=== PATIENT | male | born 1970 | race Caucasian/White ===

== ENCOUNTER → 2018-01-10 | Outpatient (CLI) | payer BC ==
[2018-01-10 09:47] LABS: HCT 45.4 % (39.0-53.0); HGB 15.4 gm/dL (13.0-17.5); MCH 30.3 pg (25.0-35.0); MCHC 33.9 g/dL (31.0-37.0); MCV 89.2 fL (80.0-100.0); Platelet Count 212 k/uL (150-450); RBC 5.09 m/uL (4.30-5.90); RDW 12.9 % (11.5-15.5); WBC 9.3 k/uL (3.8-10.6)
[2018-01-10 10:00] LABS: Potassium 4.4 mmol/L (3.5-5.1)
== END ==
LOC: LABPAT 08:18
PROVIDERS: ATTEND Internal Medicine Interventional Cardiology
DX: Z01.812 Encounter for preprocedural laboratory examination (principal); I10 Essential (primary) hypertension; E78.1 Pure hyperglyceridemia; R06.02 Shortness of breath; R07.9 Chest pain, unspecified
CPT/HCPCS: 36415; 80051; 82565; 84520; 85027

== ENCOUNTER → 2018-01-24 | Day surgery (SDC) | payer BC ==
[2018-01-23 08:18] VITALS: BMI 37.8
[~2018-01-24] MED LIST: ALPRAZolam 0.25 MG TAB PO PRN; ALPRAZolam 0.5 MG TAB PO PRN; ASPIRIN 325 MG TAB PO STA; ATORVASTATIN 80 MG TAB PO STA; HEPARIN SODIUM 1,000 UN/ML (10ML VL) IV ONE; IOPAMIDOL-370 125ML BTL INJ ONE; LIDOCAINE 1% INJ 10MG/ML (20 ML MDV) SQ ONE; MIDAZOLAM 2 MG/2 ML VIAL IVP ONE; NITROGLYCERIN SL TABS 0.4 MG TAB SUBLINGUAL PRN; RX INFO: IV CONTRAST WAS GIVEN 1 EACH MISC MISCELLANE PRN; SODIUM CHLORIDE 0.9% 1,000 ML IV SCH; SODIUM CHLORIDE 0.9% 1,000 ML in EMPTY BAG 1 BAG IV ONE; VERAPAMIL 2.5 MG/ML 4 ML VIAL INTRAARTER ONE; fentaNYL (PF) 50 MCG/ML 2 ML AMP IVP ONE
[2018-01-24 08:38] VITALS: TEMP 98.2
--- NOTE | 2018-01-24 10:05 | CC ---
CARDIAC CATHETERIZATION REPORT DATE OF SERVICE: January 24, 2018 PERFORMING PHYSICIAN: Myron Maya MD, astronomy professor. PROCEDURE PERFORMED: 1. Selective right and left coronary angiogram. 2. Left heart catheterization. INDICATION: This is a pleasant 47-year-old gentleman with hypertension and dyslipidemia and sleep apnea, who continues to have exertional chest discomfort quite concerning for angina in spite of maximized medical treatment. Because of that, a heart catheterization was advised. APPROACH: Right radial artery. COMPLICATION: None. LEVEL OF SEDATION: Moderate with sedation length of 12 minutes. PROCEDURE DESCRIPTION: After obtaining an informed consent, the patient was brought to the cardiac laborer laboratory. The right radial artery was cannulated using micropuncture technique and a micropuncture wire passed easily then I placed a 6-Mohawk sheath in the right radial artery. After that, I did selective right and left coronary angiogram using JR4 and JL3.5 catheters. I did left heart catheterization using the JR4 catheter which flipped into the LV then I did pullback across the aortic valve. I gave the patient 10 mg of heparin at the beginning of the procedure and 2 mg of verapamil as well. The procedure was completed without any complication. SELECTIVE CORONARY ANGIOGRAM: 1. The right coronary artery is a large caliber vessel and is a dominant vessel. The right coronary artery is angiographically normal. It distally bifurcates into PDA and PLV branches both are angiographically normal. 2. The left main is normal. It bifurcates into left circumflex, ramus intermedius, and left anterior descending artery. 3. The left circumflex is a large caliber vessel. It is a nondominant vessel. It is angiographically normal. 4. The ramus intermedius is a large caliber vessel as well and appeared to be angiographically normal. 5. LAD: The proximal LAD appeared to have mild disease only. The mid LAD and distal LAD are angiographically normal. The LAD in the midportion gives rise into 2 diagonal branches both are angiographically normal. HEMODYNAMICS: The left ventricular end-diastolic pressure was 15 mmHg and no gradient was identified across the aortic valve. CONCLUSION: 1. Normal coronary angiogram. 2. Normal left ventricular end-diastolic pressure. POSTPROCEDURE MANAGEMENT: Medical treatment and follow up with . MMODL / IJN: [id number] /
--- NOTE | 2018-01-24 10:05 | LTR ---
January 24, 2018 Re: Fernando Hightower Dear Dr. Jack: Mr. Fernando Hightower underwent today a heart catheterization and that revealed normal coronaries. I want to thank you for allowing me to participate in his care and please do not hesitate to call if you have any questions or concerns. Sincerely, MD JEIMY Ureña / NADEEN: [id number] /
[2018-01-24 15:02] VITALS: PULSE 74; RESP 16
[2018-01-24 15:17] VITALS: BP 129/75
== END ==
LOC: CATHCVL 08:16
PROVIDERS: ATTEND Internal Medicine Interventional Cardiology
DX: I20.0 Unstable angina (principal); R06.02 Shortness of breath; I10 Essential (primary) hypertension; E78.5 Hyperlipidemia, unspecified; E78.00 Pure hypercholesterolemia, unspecified; G47.33 Obstructive sleep apnea (adult) (pediatric); E66.9 Obesity, unspecified; Z68.37 Body mass index [BMI] 37.0-37.9, adult; F17.200 Nicotine dependence, unspecified, uncomplicated; Z79.899 Other long term (current) drug therapy; Z88.1 Allergy status to other antibiotic agents; Z82.49 Family history of ischemic heart disease and other diseases of the circulatory system
CPT/HCPCS: 93458; C1769; C1894; J2250; J2001; J3010; J1644; Q9967

== ENCOUNTER → 2020-07-21 | Outpatient (CLI) | payer BC ==
--- NOTE | 2020-07-21 19:19 | CONS ---
CONSULTATION REASON FOR CONSULTATION: Sleep apnea. HISTORY OF PRESENT ILLNESS: 49-year-old male patient coming in for evaluation of obstructive sleep apnea. The patient was diagnosed having PRAVEENA many years back under the care of Dr. Saravia. At that time the patient was given a UPPP that [place] [address] Lemon. He felt better after the UPPP. The patient was doing well for quite some time till his symptoms recurred and the patient is currently having excessive snoring, witnessed apneas, excessive fatigue and tiredness during the day. He is also gasping for air occasionally in the middle of the night. He goes to bed somewhere between 10 a.m. and noon time and he gets out of bed around at around 9:45 pm. 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 His current [place] score is at 12. He has no recent weight gain. His has obstructive sleep apnea and he has tried his 's CPAP unit. He felt great and he is quite confident that the treatment will offer him the same relief. For that reason, he came back for reevaluation. PAST MEDICAL HISTORY: Obstructive sleep apnea and hypertension. 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 PAST SURGICAL HISTORY: Includes UPPP and reattachment of a ruptured biceps tendon. DRUG ALLERGIES: ERYTHROMYCIN. MEDICATION: Includes Coreg and telmisartan and melatonin. SOCIAL HISTORY: The patient is a nonsmoker. No history of alcohol. No history of IV drugs. FAMILY HISTORY: His has obstructive sleep apnea. Hypertension, heart disease also run in the family. REVIEW OF SYSTEMS: Fourteen-point review of system was done. Positive findings are mentioned in history of present illness. He is somnolent and sleepy for now. No recent weight gain. No sinus allergies. He is able to breathe through his nose. He wakes up with a dry mouth. No choking on food material. No difficulty with swallowing or aspiration. PHYSICAL EXAMINATION: VITAL SIGNS: BP is 136/90, pulse 76, respirations 16, temperature 97.6. Saturation 97% on room air. [place] score is 12. Height is 5 feet 11 inches, weight is 269, BMI 37.5. Neck size 19.5 inches. GENERAL appearance: Calm, comfortable. HEAD: Atraumatic, normocephalic. NECK: Supple. There is no JVD. No goiter or neck masses. Mallampati class 3. The soft palate and uvula has been resected. LUNGS: Clear to auscultation. HEART: Heart sounds are regular rate and rhythm. Normal S1, S2. No S3, S4. No murmurs. ABDOMEN: Soft, nontender. No organomegaly. EXTREMITIES: No edema. No cyanosis or clubbing. NEUROLOGIC: Awake and alert. There is no focal neurological deficits. PSYCHIATRIC: Negative for anxiety or depression. IMPRESSION: 1. Obstructive sleep apnea, symptomatic. Post UPPP done in 1998. Coming in for reevaluation. 2. Chronic hypersomnia, [place] score of 12. 3. Midnight shift worker. 4. Hypertension. PLAN: 1. Proceed with a home sleep study. 2. Confirmed the presence of obstructive sleep apnea. Following that, proceed with an APAP treatment. 3. Encourage weight loss. 4. Implement good sleep hygiene measures. 5. Will continue to follow. MMODL / IJN: [id number] /
== END ==
LOC: SLEEP 14:03
PROVIDERS: ATTEND Internal Medicine Critical Care Medicine
DX: G47.33 Obstructive sleep apnea (adult) (pediatric) (principal); I10 Essential (primary) hypertension; Z88.1 Allergy status to other antibiotic agents; Z99.89 Dependence on other enabling machines and devices
CPT/HCPCS: 99202

== ENCOUNTER → 2022-01-12 | Outpatient (CLI) | payer BC ==
--- NOTE | 2022-01-13 12:43 | CT ---
EXAMINATION TYPE: CT abdomen pelvis wo con CT DLP: 1615 mGycm, Automated exposure control for dose reduction was used. DATE OF EXAM: 01/12/2022 5:47 PM COMPARISON: None CLINICAL INDICATION:Male, 51 years old with history of N20.0 CALCULUS OF KIDNEY; hx of recent kidney stones on and off x1 year TECHNIQUE: Axial CT of the abdomen and pelvis. Sagittal and coronal reformats were created on a [facility] workstation. Contrast used: None Oral contrast used: without Oral Contrast FINDINGS: LOWER CHEST: Unremarkable ABDOMEN LIVER: Diffusely hypoattenuating parenchyma. GALLBLADDER AND BILE DUCTS: Unremarkable. PANCREAS: Unremarkable. SPLEEN: Spleen is enlarged measuring up to 16.5 cm in caudocranial dimension. ADRENAL GLANDS: Unremarkable. KIDNEYS AND URETERS: Nonobstructing renal calculi measuring up to 3 mm on the left andr 2 mm on the r ight. No evidence of hydronephrosis. Left renal cysts which appears simple.r PELVIS BLADDER: Unremarkable REPRODUCTIVE: Unremarkable. ABDOMEN & PELVIS STOMACH AND BOWEL: No evidence of bowel obstruction. Appendix is normal. Scattered clonic diverticula . PERITONEUM: No evidence of pneumoperitoneum or free fluid. VASCULATURE: No evidence of aortic aneurysm. MUSCULOSKELETAL: No acute osseous abnormalities LYMPH NODES: No gross evidence for lymphadenopathy. SOFT TISSUE/ABDOMINAL WALL: Fat-containing umbilical hernia. IMPRESSION: 1. No evidence of obstructive uropathy. No evidence for acute abdominal process. 2. Bilateral nonobstructing renal calculi. 3. Splenomegaly.
== END | disposition home or self-care (01) ==
LOC: RADCTMAIN 17:15
PROVIDERS: ATTEND Internal Medicine
DX: N20.0 Calculus of kidney (principal); R16.1 Splenomegaly, not elsewhere classified
CPT/HCPCS: 74176

== ENCOUNTER → 2022-01-20 | Outpatient (CLI) | payer BC ==
[2022-01-20 18:01] LABS: Basophils # (A) 0.05 X 10*3/uL (0.00-0.10); Basophils % (A) 0.7 %; Eosinophils # (A) 0.26 X 10*3/uL (0.04-0.35); Eosinophils % (A) 3.4 %; HCT 40.3 % (39.6-50.0); HGB 14.3 g/dL (13.0-17.0); Immature Grans, Automated 0.4 %; Lymphocytes # (A) 2.14 X 10*3/uL (0.90-5.00); Lymphocytes % (A) 27.9 %; MCH 30.8 pg (27.0-32.0); MCHC 35.5 g/dL (32.0-37.0); MCV 86.7 fL (80.0-97.0); Monocytes # (A) 0.64 X 10*3/uL (0.20-1.00); Monocytes % (A) 8.3 %; NRBC Per 100 WBC 0 /100 WBCS (0.0-0.0); Neutrophils # (A) 4.56 X 10*3/uL (1.80-7.70); Neutrophils % (A) 59.3 %; Platelet Count 156 X 10*3/uL (140-440); RBC 4.65 X 10*6/uL (4.40-5.60); RDW 12.1 % (11.5-14.5); WBC 7.68 X 10*3/uL (4.50-10.00)
[2022-01-20 18:38] LABS: ALT 39 U/L (10-49); AST 20 U/L (14-35); African American GFR (CKD) 100.6 (60.0-200.0); Albumin 4.6 g/dL (3.8-4.9); Albumin/Globulin Ratio 1.84 (1.60-3.17); Alkaline Phosphatase 53 U/L (41-126); Blood Urea Nitrogen 16.3 mg/dL (9.0-27.0); Calcium 9.4 mg/dL (8.7-10.3); Carbon Dioxide 25.9 mmol/L (20.0-27.5); Chloride 97 mmol/L (96-109); Globulin 2.5 g/dL (1.6-3.3); Glucose 106 mg/dL (70-110); Non-African American GFR(CKD) 86.8 (60.0-200.0); Potassium 3.8 mmol/L (3.5-5.5); Sodium 135 mmol/L (135-145); Total Protein 7.1 g/dL (6.2-8.2)
[2022-01-20 19:02] LABS: Chol/HDL Ratio 12.79 Ratio
[2022-01-20 19:46] LABS: Appearance,Urine Clear (Clear); Bilirubin,Urine Negative (Negative); Blood,Urine Negative (Negative); Color,Urine Yellow (Yellow); Ketones,Urine Negative (Negative); Nitrite,Urine Negative (Negative); PH, Urine 5.5 (5.0-8.0); Specific Gravity,Urine 1.007 (1.001-1.030); Urobilinogen,Urine 0.2 (0.2,1.0)
== END | disposition home or self-care (01) ==
LOC: LABWHC1 10:53
PROVIDERS: ATTEND Internal Medicine
DX: Z12.5 Encounter for screening for malignant neoplasm of prostate (principal); I10 Essential (primary) hypertension; N20.0 Calculus of kidney
CPT/HCPCS: 36415; 80053; 80061; 81003; 82365; 83721; 83970; 84153; 84443; 85025; 87086